=== PATIENT | male | born 1945 ===

== ENCOUNTER 2016-11-13 13:31 | Emergency (ER) | payer MEDICARE ==
[2016-11-13 14:08] VITALS: BP 136/78; PULSE 89; RESP 16; TEMP 98.2; O2SAT 96
[2016-11-13] MEDS ORDERED: Albuterol-Ipratrop 3 mg / 0.5 (3 ml) UD INH STA (14:11)
[2016-11-13] MEDS ORDERED: Albuterol-Ipratrop 3 mg / 0.5 (3 ml) UD ONE (14:27)
--- NOTE | 2016-11-13 14:49 | ED PDOC ---
HPI: SOB/CHF/COPD Time Seen by Provider: 11/13/16 14:02 Chief Complaint (Nursing): Cough, Cold, Congestion Chief Complaint (Provider): shortness of breath History Per: Patient History/Exam Limitations: no limitations Onset/Duration Of Symptoms: Days (2x) Current Symptoms Are (Timing): Still Present Quality: Tightness (chest) Current Respiratory Medications: See Home Med List, Albuterol Severity: Moderate Associated Symptoms: Productive Cough (productive with minimal clear sputum). denies: Fever, Chills, Bloody Cough, Ankle/Leg Swelling, Other (sore throat) Additional Complaint(s): 71 year old male patient with a pertinent medical history of asthma, HTN, COPD, CHF, NIDDM, and anemia presents to the ED right after he came back from [place] with complaints of shortness of breath (ongoing for the past 2x days). He reports that he took his home medication for the 2 weeks that he was in [place] and didn't have any symptoms then, but he has been taking albuterol with no relief for the past 2x days that he has had the symptoms at home. He also reports having associated symptoms of chest tightness and a productive cough with minimal clear sputum. He denies having a fever, hemoptysis, chills, sore throat, and leg swelling. Of note: patient is an ex-smoker. PMD: Shorty Snider MD Past Medical History Reviewed: Historical Data, Nursing Documentation, Vital Signs Vital Signs: Last Vital Signs Temp 98.2 F 11/13/16 14:06 Pulse 89 11/13/16 14:06 Resp 16 11/13/16 14:06 BP 136/78 11/13/16 14:06 Pulse Ox 96 11/13/16 15:11 - Medical History PMH: Asthma, COPD, Diabetes, HTN, Hypercholesterolemia Denies: HIV, Chronic Kidney Disease - Surgical History Surgical History: Hernia Repair - Family History Family History: States: Diabetes, Hypertension - Social History Ex-Smoker (has not smoked in the last 12 months): Yes Alcohol: Occasional Drugs: Denies - Home Medications Home Medications: Ambulatory Orders Medication Instructions Recorded Albuterol HFA [Ventolin HFA 90 2 puff IH Q4H PRN 06/03/16 mcg/actuation (8 g)] Albuterol/Ipratropium [Duoneb 3 3 ml IH QID PRN 06/03/16 mg/0.5 mg (3 ml) UD] Aspirin [Ecotrin] 81 mg PO DAILY 06/03/16 Atorvastatin [Lipitor] 20 mg PO DAILY 06/03/16 Budesonide/Formoterol Fumarate 1 puff IH Q12 06/03/16 [Symbicort 160-4.5 Mcg Inhaler] Levocetirizine Dihydrochloride 5 mg PO DAILY 06/03/16 [Xyzal] Losartan/Hydrochlorothiazide 1 tab PO DAILY 06/03/16 [Hyzaar 100-12.5 Tablet] Montelukast [Singulair] 10 mg PO HS 06/03/16 Pantoprazole Sodium [Protonix] 40 mg PO DAILY 06/03/16 metFORMIN [glucOPHAGE] 500 mg PO BID 06/03/16 predniSONE [predniSONE Tab] 3 tab PO DAILY #12 tab 06/03/16 Albuterol HFA [Ventolin HFA 90 2 puff IH Q4H #1 puff 07/27/16 mcg/actuation (8 g)] Azithromycin [Zithromax] 250 mg PO DAILY #6 tab 07/27/16 predniSONE [predniSONE Tab] 10 mg PO TID #15 tab 07/27/16 Prednisone 50 mg PO DAILY #4 tablet 11/13/16 - Allergies Allergies/Adverse Reactions: Allergies Allergy/AdvReac Type Severity Reaction Status Date / Time Penicillins Allergy RASH Verified 11/13/16 14:06 Review of Systems ROS Statement: Except As Marked, All Systems Reviewed And Found Negative Constitutional: Negative for: Fever, Chills ENT: Negative for: Throat Pain Cardiovascular: Positive for: Other (chest tightness) Respiratory: Positive for: Cough, Shortness of Breath, Sputum (minimal productive with clear sputum) Gastrointestinal: Negative for: Hematemesis Musculoskeletal: Negative for: Other (leg swelling) Physical Exam - Reviewed Nursing Documentation Reviewed: Yes Vital Signs Reviewed: Yes - Physical Exam Appears: Positive for: Well, Non-toxic, In Acute Distress (mild respiratory distress) Head Exam: Positive for: ATRAUMATIC, NORMOCEPHALIC Skin: Positive for: Normal Color, Warm, Dry Eye Exam: Positive for: Normal appearance, EOMI, PERRL ENT: Positive for: Normal ENT Inspection (throat is clear), Other (moist mucous membranes) Neck: Positive for: Normal, Painless ROM, Supple Cardiovascular/Chest: Positive for: Regular Rate, Rhythm, Chest Non Tender. Negative for: Murmur Respiratory: Positive for: Wheezing (scattered expiratory wheeze), Respiratory Distress (mild). Negative for: Normal Breath Sounds, Rales Gastrointestinal/Abdominal: Positive for: Normal Exam, Other (protuberant). Negative for: Mass, Distended, Guarding Extremity: Negative for: Pedal Edema, Calf Tenderness, Deformity Lymphatic: Negative for: Adenopathy (no cervical lymphadenopathy) Neurologic/Psych: Positive for: Alert, Oriented (3x). Negative for: Motor/ Sensory Deficits - Laboratory Results Result Diagrams: 11/13/16 14:30 11/13/16 14:30 - ECG ECG: Positive for: Interpreted By Me ECG Rhythm: Positive for: Normal QRS, Normal ST Segment, Sinus Rhythm O2 Sat by Pulse Oximetry: 96 (RA) Pulse Ox Interpretation: Normal - Radiology X-Ray: Interpreted by De X-Ray Interpretation: No Acute Disease - Progress Re-evaluation Time: 15:00 Condition: Improved (PF improved 350 to 450. Reports feeling better.) Nebulizer Treatments/Peak Flow - Duonebs Number of Bronchodilator Doses given?: 3 - Pre/Post Peak Flow Pre Treatment Peak Flow: 1 Post treatment Peak Flow: 1 Medical Decision Making Medical Decision Makin:02 Initial impression: 71 year old male with shortness of breath. Differential diagnoses include but are not limited to pneumonia, asthma exacerbation, CHF, and viral syndrome. Initial plan: * XRay chest 2 views * EKG * b-type natriuretic peptide * cmp * magnesium * phosphorus * troponin I * CBC with differential * PTT coag * prothrombin time * duoneb (3mlx3)= 9ml INH * peak flow pre and post treatment * influenza A B * reevaluation Scribe Attestation: Documented by Janelle Quintero, acting as a scribe for Yaquelin Coleman MD. Provider Scribe Attestation: All medical record entries made by the Scribe were at my direction and personally dictated by me. I have reviewed the chart and agree that the record accurately reflects my personal performance of the history, physical exam, medical decision making, and the department course for this patient. I have also personally directed, reviewed, and agree with the discharge instructions and disposition. Disposition - Clinical Impression Clinical Impression: Asthma exacerbation Counseled Patient/Family Regarding: Studies Performed, Diagnosis, Need For Followup, Rx Given - Disposition Referrals: [facility] [Outside] Disposition: Routine/Home Disposition Time: 15:30 Condition: IMPROVED Additional Instructions: CALL CLINIC TOMORROW TO SETUP APPOINTMENT FRIDAY Prescriptions: Prednisone 50 mg PO DAILY #4 tablet Instructions: Asthma (ED)
[2016-11-13 14:59] LABS: BASO % 0.5 % (0.0-2.0); EOS # 0.2 K/uL (0.0-0.7); EOS % 2.1 % (0.0-4.0); HEMATOCRIT 38.3 % (35.0-51.0); LYMPH # 1.2 K/uL (1.0-4.3); LYMPH % 14.3 % (20.0-40.0); MEAN CELL VOLUME 77.8 fl (80.0-94.0); MEAN CORPUSCULAR HEMOGLOBIN 24.8 pg (27.0-31.0); MEAN CORPUSCULAR HGB CONC 31.9 g/dL (33.0-37.0); MEAN PLATELET VOLUME 7.6 fl (7.2-11.7); MONO # 0.4 K/uL (0.0-0.8); MONO % 4.4 % (0.0-10.0); NEUT # 6.7 K/uL (1.8-7.0); NEUT % 78.7 % (50.0-75.0); RED CELL DISTRIBUTION WIDTH 16.3 % (11.5-14.5); WHITE BLOOD COUNT 8.5 K/uL (4.8-10.8)
[2016-11-13 15:11] LABS: ALB/GLOB RATIO 1.4 (1.0-2.1); ALKALINE PHOSPHATASE 74 U/L (38-126); ALT/SGPT 53 U/L (21-72); AST/SGOT 32 U/L (17-59); BILIRUBIN,TOTAL 0.8 mg/dl (0.2-1.3); BLOOD UREA NITROGEN 22 mg/dl (9-20); CALCIUM 9.2 mg/dL (8.4-10.2); CARBON DIOXIDE 24 mmol/L (22-30); CHLORIDE 105 mmol/L (98-107); GFR AFRICAN-AMERICAN > 60; GLUCOSE,RANDOM 110 mg/dL (75-110); MAGNESIUM 1.6 MG/DL (1.6-2.3); PHOSPHOROUS 3.4 mg/dl (2.5-4.5); POTASSIUM 3.9 MMOL/L (3.6-5.0); SODIUM 139 mmol/l (132-148)
[2016-11-13 15:48] LABS: PARTIAL THROMBOPLASTIN TIME 23.5 SECONDS (23.3-32.5)
--- NOTE | 2016-11-13 16:22 | RAD ---
HISTORY: Shortness of breath. COMPARISON: 07/27/2016. TECHNIQUE: Chest PA and lateral FINDINGS: LUNGS: Stable apical pleural thickening, scarring PLEURA: No significant pleural effusion identified. No pneumothorax apparent. CARDIOVASCULAR: No radiographic findings to suggest acute or significant cardiovascular disease. OSSEOUS STRUCTURES: No significant abnormalities. VISUALIZED UPPER ABDOMEN: Normal. OTHER FINDINGS: None. IMPRESSION: No active disease. No significant interval change compared to the prior examination(s).
--- NOTE | 2016-11-15 08:12 | CARD ---
APPROVED REPORT EKG Measurement Heart [id number] TN [id number] [id number] <Conclusion> Normal sinus rhythm Normal ECG
== END 2016-11-13 16:04 | disposition home or self-care (01) ==
LOC: H.ER 13:31
DX: J45.901 Unspecified asthma with (acute) exacerbation (principal); R06.02 Shortness of breath; E11.9 Type 2 diabetes mellitus without complications; E78.00 Pure hypercholesterolemia, unspecified; I10 Essential (primary) hypertension; Z79.82 Long term (current) use of aspirin; Z79.84 Long term (current) use of oral hypoglycemic drugs
CPT/HCPCS: 71020; 80053; 82948; 83735; 83880; 84100; 84484; 85025; 85610; 85730; 87040; 87804; 93005; 94640; 96374; 99282; J2930

== ENCOUNTER 2017-04-18 12:02 | Emergency (ER) | payer MEDICARE ==
[2017-04-18 12:11] VITALS: BMI 32.6
[2017-04-18] MEDS ORDERED: Sodium Chloride 0.9% 1,000 ML IV STA (12:34)
--- NOTE | 2017-04-18 12:48 | ED PDOC ---
HPI: Abdomen Time Seen by Provider: 04/18/17 12:33 Chief Complaint (Nursing): GI Problem Chief Complaint (Provider): diarrhea History Per: Patient (71 y/o male h/o IDDM/HTN/HLD here with diarrhea watery frequent x 2 days. Notes abdominal bloating/denies any vomiting/fevers/chills. No h/o abdominal surgeries. ) Past Medical History Reviewed: Historical Data, Nursing Documentation, Vital Signs Vital Signs: Last Vital Signs Temp 98 F 04/18/17 12:11 Pulse 96 H 04/18/17 12:11 Resp 21 04/18/17 12:11 BP 130/63 04/18/17 12:11 Pulse Ox 97 04/18/17 12:48 - Medical History PMH: Asthma, COPD, Diabetes, HTN, Hypercholesterolemia Denies: HIV, Chronic Kidney Disease - Surgical History Surgical History: Hernia Repair - Family History Family History: States: Unknown Family Hx, Diabetes, Hypertension - Home Medications Home Medications: Ambulatory Orders Medication Instructions Recorded Albuterol HFA [Ventolin HFA 90 2 puff IH Q4H PRN 06/03/16 mcg/actuation (8 g)] Albuterol/Ipratropium [Duoneb 3 3 ml IH QID PRN 06/03/16 mg/0.5 mg (3 ml) UD] Aspirin [Ecotrin] 81 mg PO DAILY 06/03/16 Atorvastatin [Lipitor] 20 mg PO DAILY 06/03/16 Budesonide/Formoterol Fumarate 1 puff IH Q12 06/03/16 [Symbicort 160-4.5 Mcg Inhaler] Levocetirizine Dihydrochloride 5 mg PO DAILY 06/03/16 [Xyzal] Losartan/Hydrochlorothiazide 1 tab PO DAILY 06/03/16 [Hyzaar 100-12.5 Tablet] Montelukast [Singulair] 10 mg PO HS 06/03/16 Pantoprazole Sodium [Protonix] 40 mg PO DAILY 06/03/16 metFORMIN [glucOPHAGE] 500 mg PO BID 06/03/16 Famotidine [Pepcid] 20 mg PO BID #10 tab 04/18/17 - Allergies Allergies/Adverse Reactions: Allergies Allergy/AdvReac Type Severity Reaction Status Date / Time Penicillins Allergy RASH Verified 11/13/16 14:06 Review of Systems ROS Statement: Except As Marked, All Systems Reviewed And Found Negative Physical Exam - Reviewed Nursing Documentation Reviewed: Yes Vital Signs Reviewed: Yes - Physical Exam Appears: Positive for: Well, Non-toxic, No Acute Distress Head Exam: Positive for: ATRAUMATIC, NORMAL INSPECTION, NORMOCEPHALIC Skin: Positive for: Normal Color, Warm, DRY Eye Exam: Positive for: EOMI, Normal appearance, PERRL ENT: Positive for: Normal ENT Inspection Neck: Positive for: Normal, Painless ROM Cardiovascular/Chest: Positive for: Regular Rate, Rhythm Respiratory: Positive for: CNT, Normal Breath Sounds Gastrointestinal/Abdominal: Positive for: Normal Exam, Bowel Sounds (decreased bowel sounds), Soft, Other. Negative for: Tenderness (epigastric tenderness minimal) Back: Positive for: Normal Inspection Extremity: Positive for: Normal ROM Neurologic/Psych: Positive for: Alert, Oriented - Laboratory Results Result Diagrams: 04/18/17 12:44 04/18/17 12:44 - ECG O2 Sat by Pulse Oximetry: 97 - Progress ED Course And Treament: EKG: Sinus tachycardia 104 bpm no ectopy no acute change pepcid 20 mg iv x 1 dose ns 1 liter 500 ml per hour Re-evaluated 14:30pm. Nontender abdomen noted. Patient feels improved. Disposition - Clinical Impression Clinical Impression: Gastroenteritis - Patient ED Disposition Is Patient to be Admitted: No - Disposition Referrals: Shorty Snider MD [Staff Provider] - Disposition: Routine/Home Disposition Time: 14:59 Condition: FAIR Prescriptions: Famotidine [Pepcid] 20 mg PO BID #10 tab Instructions: Acute Diarrhea (ED) Forms: [employer] (Honduran) Print Language: LIBYAN
[2017-04-18 13:29] LABS: BASO # 0.1 K/uL (0.0-0.2); BASO % 0.5 % (0.0-2.0); EOS % 0.1 % (0.0-4.0); HEMATOCRIT 38.9 % (35.0-51.0); LYMPH # 1.7 K/uL (1.0-4.3); LYMPH % 13.4 % (20.0-40.0); MEAN CELL VOLUME 77.7 fl (80.0-94.0); MEAN CORPUSCULAR HEMOGLOBIN 24.5 pg (27.0-31.0); MEAN CORPUSCULAR HGB CONC 31.6 g/dL (33.0-37.0); MEAN PLATELET VOLUME 7.8 fl (7.2-11.7); MONO % 7.7 % (0.0-10.0); NEUT % 78.3 % (50.0-75.0); WHITE BLOOD COUNT 12.8 K/uL (4.8-10.8)
[2017-04-18 14:14] LABS: ALB/GLOB RATIO 1.3 (1.0-2.1); ALKALINE PHOSPHATASE 90 U/L (38-126); ALT/SGPT 60 U/L (21-72); AST/SGOT 47 U/L (17-59); BILIRUBIN,TOTAL 0.8 mg/dl (0.2-1.3); BLOOD UREA NITROGEN 18 mg/dl (9-20); CALCIUM 8.8 mg/dL (8.4-10.2); CARBON DIOXIDE 20 mmol/L (22-30); CHLORIDE 103 mmol/L (98-107); GFR AFRICAN-AMERICAN > 60; GLUCOSE,RANDOM 126 mg/dL (75-110); LIPASE 42 U/L (23-300); MAGNESIUM 1.8 MG/DL (1.6-2.3); POTASSIUM 3.7 MMOL/L (3.6-5.0); SODIUM 137 mmol/l (132-148); TOTAL PROTEIN 6.8 G/DL (6.3-8.2)
[2017-04-18 15:05] VITALS: BP 148/89; PULSE 86; RESP 14; TEMP 97.9; O2SAT 100
== END 2017-04-18 15:25 | disposition home or self-care (01) ==
LOC: H.ER 12:02
DX: K52.9 Noninfective gastroenteritis and colitis, unspecified (principal); E11.9 Type 2 diabetes mellitus without complications
CPT/HCPCS: 80053; 82948; 83690; 83735; 85025; 96374; 99285; J7040

== ENCOUNTER 2018-01-23 07:15 | Day surgery (SDC) | payer MEDICARE ==
[2018-01-23 07:31] VITALS: BMI 32.2
[2018-01-23] MEDS ORDERED: Lactated Ringer's 500 ML IV ONE (07:43)
[2018-01-23] MEDS ORDERED: Propofol 10 mg/ml Inj (20 ML) ONE (09:06)
[2018-01-23 09:31] VITALS: BP 104/58; PULSE 91; RESP 18; TEMP 96.8; O2SAT 99
== END 2018-01-23 10:31 | disposition home or self-care (01) ==
LOC: H.ENDO 07:15
PROVIDERS: ATTEND Internal Medicine Gastroenterology
DX: Z12.11 Encounter for screening for malignant neoplasm of colon (principal); J45.909 Unspecified asthma, uncomplicated; E78.5 Hyperlipidemia, unspecified; E11.9 Type 2 diabetes mellitus without complications; I10 Essential (primary) hypertension; K64.8 Other hemorrhoids; D12.2 Benign neoplasm of ascending colon; K57.30 Diverticulosis of large intestine without perforation or abscess without bleeding
CPT/HCPCS: 45385; 88305; J2001; J2704; J7120

== ENCOUNTER 2018-11-14 12:20 | Emergency (ER) | payer MEDICARE ==
[2018-11-14 12:20] VITALS: BMI 32.2
[2018-11-14 12:29] VITALS: BP 145/85; PULSE 109; RESP 16; TEMP 97.3; O2SAT 98
[2018-11-14] MEDS ORDERED: Albuterol-Ipratrop 3 mg / 0.5 (3 ml) UD IH STA ×2 (12:47→12:48)
[2018-11-14] MEDS ORDERED: Albuterol-Ipratrop 3 mg / 0.5 (3 ml) UD INH STA (12:47)
--- NOTE | 2018-11-14 12:55 | ED PDOC ---
HPI: Asthma Time Seen by Provider: 11/14/18 12:35 Chief Complaint (Nursing): Shortness Of Breath Chief Complaint (Provider): Shortness of Breath, Coughing History Per: Patient History/Exam Limitations: no limitations Onset/Duration Of Symptoms: Days (x5) Current Symptoms Are (Timing): Still Present Additional Complaint(s): 73 year old male presents to the ED for evaluation of shortness of breath, coughing, and chest tightness for the past five days, similar to previous asthmatic episodes. Reports using his inhaler at home with minimal relief. Patient also notes having some nasal congestion, but otherwise denies nausea, vomiting, diarrhea, leg pain, dizziness, and headache. PMD: Shorty Snider Past Medical History Reviewed: Historical Data, Nursing Documentation, Vital Signs Vital Signs: Last Vital Signs Temp 97.3 F L 11/14/18 12:23 Pulse 109 H 11/14/18 12:23 Resp 16 11/14/18 12:23 BP 145/85 11/14/18 12:23 Pulse Ox 98 11/14/18 12:23 - Medical History PMH: Asthma (LAST ATTACK 1 YEAR AGO), COPD, Diabetes, HTN, Hypercholesterolemia Denies: HIV, Chronic Kidney Disease - Surgical History Surgical History: Hernia Repair - Family History Family History: States: Diabetes, Hypertension - Home Medications Home Medications: Ambulatory Orders Medication Instructions Recorded Albuterol HFA [Ventolin HFA 90 2 puff IH Q4H PRN 06/03/16 mcg/actuation (8 g)] Albuterol/Ipratropium [Duoneb 3 3 ml IH QID PRN 06/03/16 mg/0.5 mg (3 ml) UD] Aspirin [Ecotrin] 81 mg PO DAILY 06/03/16 Atorvastatin [Lipitor] 20 mg PO DAILY 06/03/16 Budesonide/Formoterol Fumarate 1 puff IH Q12 06/03/16 [Symbicort 160-4.5 Mcg Inhaler] Levocetirizine Dihydrochloride 5 mg PO DAILY 06/03/16 [Xyzal] Losartan/Hydrochlorothiazide 1 tab PO DAILY 06/03/16 [Hyzaar 100-12.5 Tablet] Montelukast [Singulair] 10 mg PO HS 06/03/16 Pantoprazole Sodium [Protonix] 40 mg PO DAILY 06/03/16 metFORMIN [glucOPHAGE] 500 mg PO BID 06/03/16 Albuterol Sulfate [Proair Hfa] 0.09 mg IH Q6H PRN #2 inh 11/14/18 Benzonatate [Tessalon Perles] 100 mg PO BID PRN 5 Days sgl 11/14/18 predniSONE [predniSONE Tab] 20 mg PO BID 5 Days tab 11/14/18 - Allergies Allergies/Adverse Reactions: Allergies Allergy/AdvReac Type Severity Reaction Status Date / Time Penicillins Allergy RASH Verified 11/14/18 12:25 Review of Systems ROS Statement: Except As Marked, All Systems Reviewed And Found Negative ENT: Positive for: Nose Congestion Cardiovascular: Positive for: Other (chest tightness) Respiratory: Positive for: Cough, Shortness of Breath Gastrointestinal: Negative for: Nausea, Vomiting, Diarrhea Musculoskeletal: Negative for: Leg Pain Neurological: Negative for: Headache, Dizziness Physical Exam - Reviewed Nursing Documentation Reviewed: Yes Vital Signs Reviewed: Yes - Physical Exam Appears: Positive for: No Acute Distress Head Exam: Positive for: ATRAUMATIC, NORMOCEPHALIC Skin: Positive for: Normal Color, Warm, Dry. Negative for: Rash Eye Exam: Positive for: Normal appearance ENT: Positive for: Nasal Congestion Neck: Positive for: Normal, Painless ROM, Supple Cardiovascular/Chest: Positive for: Regular Rate, Rhythm, Chest Non Tender Respiratory: Positive for: Wheezing (diffuse). Negative for: Accessory Muscle Use, Respiratory Distress Gastrointestinal/Abdominal: Positive for: Normal Exam, Soft. Negative for: Tenderness Back: Positive for: Normal Inspection Extremity: Positive for: Normal ROM (all extremities) Neurological/Psych: Positive for: Awake, Alert, Oriented (x3) - ECG ECG: Positive for: Interpreted By Me ECG Rhythm: Positive for: Sinus Tachycardia (mild) O2 Sat by Pulse Oximetry: 98 (RA) Pulse Ox Interpretation: Normal - Progress ED Course And Treament: 1505: Feels much better. AAOx3. Pain free. Tolerated po. No dyspnea. Medical Decision Making Medical Decision Making: Time: 1229 Impression: shortness of breath and coughing in setting of known asthma Initial Plan: --EKG --Duoneb 3ml INH x3 --Prednisone 60mg PO --Peak flow pre/post --Reevaluation Scribe Attestation: Documented by Yana Quinones, acting as a scribe for Elvis Quinones MD. Provider Scribe Attestation: All medical record entries made by the Scribe were at my direction and personally dictated by me. I have reviewed the chart and agree that the record accurately reflects my personal performance of the history, physical exam, medical decision making, and the department course for this patient. I have also personally directed, reviewed, and agree with the discharge instructions and disposition. Disposition - Clinical Impression Clinical Impression: Asthma exacerbation - Patient ED Disposition Is Patient to be Admitted: No Counseled Patient/Family Regarding: Studies Performed, Diagnosis, Need For Followup, Rx Given - Disposition Referrals: [facility] [Outside] - 11/16/18 Disposition: Routine/Home Disposition Time: 15:06 Condition: STABLE Additional Instructions: Return if not better in 3 days. Prescriptions: Albuterol Sulfate [Proair Hfa] 0.09 mg IH Q6H PRN #2 inh PRN Reason: Wheezing Benzonatate [Tessalon Perles] 100 mg PO BID PRN 5 Days sgl PRN Reason: Cough predniSONE [predniSONE Tab] 20 mg PO BID 5 Days tab Instructions: Asthma in Adults
--- NOTE | 2018-11-15 16:46 | CARD ---
APPROVED REPORT Date of service: 11/14/2018 EKG Measurement Heart [id number] CT [id number] <Conclusion> Sinus tachycardia Otherwise normal ECG
== END 2018-11-14 15:20 | disposition home or self-care (01) ==
LOC: H.ER 12:20
DX: J45.901 Unspecified asthma with (acute) exacerbation (principal); J44.9 Chronic obstructive pulmonary disease, unspecified; I10 Essential (primary) hypertension; E11.9 Type 2 diabetes mellitus without complications; Z79.82 Long term (current) use of aspirin; Z79.84 Long term (current) use of oral hypoglycemic drugs; Z79.899 Other long term (current) drug therapy; Z88.0 Allergy status to penicillin

== ENCOUNTER 2018-12-11 07:14 | Day surgery (SDC) | payer MEDICARE ==
[2018-12-11] MEDS ORDERED: Lactated Ringer's 500 ML IV ONE ×2 (07:25)
[2018-12-11 07:40] VITALS: BMI 32.4
[2018-12-11] MEDS ORDERED: Propofol 10 mg/ml Inj (20 ML) ONE (08:29)
[2018-12-11 08:55] VITALS: PULSE 100; RESP 20; TEMP 98.3; O2SAT 96
[2018-12-11 09:05] VITALS: BP 137/78
== END 2018-12-11 13:51 | disposition home or self-care (01) ==
LOC: H.ENDO 07:14
PROVIDERS: ATTEND Internal Medicine Gastroenterology
DX: Z12.11 Encounter for screening for malignant neoplasm of colon (principal); K64.1 Second degree hemorrhoids; D12.5 Benign neoplasm of sigmoid colon; K57.30 Diverticulosis of large intestine without perforation or abscess without bleeding; J45.909 Unspecified asthma, uncomplicated; E11.9 Type 2 diabetes mellitus without complications; E78.5 Hyperlipidemia, unspecified; I10 Essential (primary) hypertension
CPT/HCPCS: 45380; 82948; 88305; J2001; J2704; J7120

== ENCOUNTER 2018-12-25 07:12 | Day surgery (SDC) | payer MEDICARE ==
[2018-12-25] MEDS ORDERED: Lactated Ringer's 500 ML IV ONE (07:49)
[2018-12-25 07:57] VITALS: BMI 32.7
[2018-12-25] MEDS ORDERED: Propofol 10 mg/ml Inj (20 ML) ONE (08:49)
[2018-12-25 10:09] VITALS: BP 113/74; PULSE 94; RESP 17; TEMP 97; O2SAT 99
== END 2018-12-25 10:30 | disposition home or self-care (01) ==
LOC: H.ENDO 07:12
PROVIDERS: ATTEND Internal Medicine Gastroenterology
DX: K27.9 Peptic ulcer, site unspecified, unspecified as acute or chronic, without hemorrhage or perforation (principal); E11.9 Type 2 diabetes mellitus without complications; E78.5 Hyperlipidemia, unspecified; I10 Essential (primary) hypertension; E66.9 Obesity, unspecified; K31.89 Other diseases of stomach and duodenum; K44.9 Diaphragmatic hernia without obstruction or gangrene
CPT/HCPCS: 43239; 82948; 88305; J2001; J2704; J7120

== ENCOUNTER 2019-01-16 09:49 | Emergency (ER) | payer MEDICARE ==
[2019-01-16 09:55] VITALS: BMI 33.7
[2019-01-16 09:56] VITALS: O2SAT 96
[2019-01-16] MEDS ORDERED: Albuterol-Ipratrop 3 mg / 0.5 (3 ml) UD INH STA (11:02)
[2019-01-16] MEDS ORDERED: Albuterol-Ipratrop 3 mg / 0.5 (3 ml) UD ONE ×2 (11:11→12:05)
[2019-01-16 11:42] LABS: BASO # 0.1 K/uL (0.0-0.2); BASO % 1.1 % (0.0-2.0); EOS # 0.3 K/uL (0.0-0.7); HEMOGLOBIN 9.2 g/dL (12.0-18.0); LYMPH # 1.3 K/uL (1.0-4.3); LYMPH % 16.7 % (20.0-40.0); MEAN CELL VOLUME 65.3 fl (80.0-94.0); MEAN CORPUSCULAR HGB CONC 30.6 g/dL (33.0-37.0); MEAN PLATELET VOLUME 7.2 fl (7.2-11.7); MONO # 0.7 K/uL (0.0-0.8); MONO % 8.9 % (0.0-10.0); NEUT # 5.4 K/uL (1.8-7.0); NEUT % 69.3 % (50.0-75.0); NRBC % 0.1 % (0.0-0.0); RBC 4.6 Mil/uL (4.40-5.90); RED CELL DISTRIBUTION WIDTH 18.4 % (11.5-14.5); WHITE BLOOD COUNT 7.8 K/uL (4.8-10.8)
[2019-01-16 12:05] LABS: ALB/GLOB RATIO 1.5 (1.0-2.1); ALBUMIN 4.3 g/dL (3.5-5.0); ALT/SGPT 37 U/L (21-72); AST/SGOT 43 U/L (17-59); BLOOD UREA NITROGEN 20 mg/dl (9-20); CALCIUM 9.1 mg/dL (8.4-10.2); GFR NON-AFRICAN AMERICAN > 60
--- NOTE | 2019-01-16 13:47 | ED PDOC ---
HPI: SOB/CHF/COPD Time Seen by Provider: 01/16/19 10:07 Chief Complaint (Nursing): Shortness Of Breath Chief Complaint (Provider): Cough, wheezing History Per: Patient History/Exam Limitations: no limitations Onset/Duration Of Symptoms: Days Current Symptoms Are (Timing): Still Present Initiating Event: Upper Respiratory Illness Exacerbating Factor(s): Exertion, Coughing Current Respiratory Medications: Albuterol Severity: Moderate Associated Symptoms: Chills, Sweating. denies: Fever, Chest Pain, Bloody Cough, Productive Cough, Ankle/Leg Swelling, Dizziness, Light-headedness Additional History Per: Patient Additional Complaint(s): 73 year old male with history of asthma, diabetes, hypertension, high cholester ol presents to the ED c/o shortness of breath, cough, wheezing for 1 week. Patient states this morning after showering he had sudden on set of chill and cold sweats. Patient denies fever or chest pain. He states cough is dry, he has been using albuterol inhaler and taking symbicort with minimal relief. Denies lower extremity swelling, abdominal pain, dizziness, nausea/vomiting. Past Medical History Reviewed: Historical Data, Nursing Documentation, Vital Signs Vital Signs: Last Vital Signs Temp 98.1 F 01/16/19 09:55 Pulse 100 H 01/16/19 09:55 Resp 17 01/16/19 09:55 BP 153/88 H 01/16/19 09:55 Pulse Ox 96 01/16/19 09:55 Primary Care Provider: Shorty Snider - Medical History PMH: Asthma, COPD, Diabetes, HTN, Hypercholesterolemia Denies: HIV, Chronic Kidney Disease - Surgical History Surgical History: Hernia Repair - Family History Family History: States: Unknown Family Hx, Diabetes, Hypertension - Social History Alcohol: None Drugs: Denies - Home Medications Home Medications: Ambulatory Orders Medication Instructions Recorded Albuterol HFA [Ventolin HFA 90 2 puff IH Q4H PRN 06/03/16 mcg/actuation (8 g)] Atorvastatin [Lipitor] 20 mg PO DAILY 06/03/16 Budesonide/Formoterol Fumarate 1 puff IH Q12 06/03/16 [Symbicort 160-4.5 Mcg Inhaler] Losartan/Hydrochlorothiazide 1 tab PO DAILY 06/03/16 [Hyzaar 100-12.5 Tablet] Montelukast [Singulair] 10 mg PO HS 06/03/16 metFORMIN [glucOPHAGE] 500 mg PO BID 06/03/16 Prednisone 50 mg PO DAILY #4 tablet 01/16/19 - Allergies Allergies/Adverse Reactions: Allergies Allergy/AdvReac Type Severity Reaction Status Date / Time Penicillins Allergy RASH Verified 11/14/18 12:25 Curb-65 Severity Score - CURB-65 Severity Score Confusion: No Bun >19mg/dl (>7mmol/L): No Respiratory Rate greater than/equal to 30: No Systolic BP <90 or Diastolic BP less than/equal 60mmHg: No Age >64: No Curb-65 Score: 0 Percentage 30-day mortality: 0.6% Review of Systems ROS Statement: Except As Marked, All Systems Reviewed And Found Negative Constitutional: Positive for: Chills, Sweats, Weakness, Malaise. Negative for: Fever Eyes: Negative for: Pain, Eyelid Inflammation ENT: Negative for: Ear Pain, Nose Pain, Nose Congestion, Throat Pain Cardiovascular: Negative for: Chest Pain, Palpitations Respiratory: Positive for: Cough, Shortness of Breath, SOB with Exertion, Wheezing. Negative for: Hemoptysis, Sputum Gastrointestinal: Negative for: Nausea, Vomiting, Abdominal Pain Neurological: Negative for: Confusion, Altered Mental Status, Headache, Dizziness Physical Exam - Reviewed Nursing Documentation Reviewed: Yes Vital Signs Reviewed: Yes - Physical Exam Appears: Positive for: Well, Non-toxic, No Acute Distress Head Exam: Positive for: ATRAUMATIC, NORMAL INSPECTION, NORMOCEPHALIC Skin: Positive for: Normal Color, Warm, DRY Eye Exam: Positive for: Normal appearance, PERRL ENT: Positive for: Pharyngeal Erythema. Negative for: Nasal Congestion, Tonsillar Exudate, Tonsillar Swelling Neck: Positive for: Normal, Painless ROM, Supple Cardiovascular/Chest: Positive for: Regular Rate, Rhythm, Chest Non Tender Respiratory: Positive for: Wheezing (expiratory wheeze). Negative for: Respiratory Distress Pulses-Radial (L): 2+ Pulses-Radial (R): 2+ Gastrointestinal/Abdominal: Positive for: Normal Exam, Bowel Sounds (normoactive ), Soft, Distended (soft ). Negative for: Tenderness Back: Positive for: Normal Inspection Extremity: Positive for: Normal ROM Neurological/Psych: Positive for: Awake, Alert, Normal Tone, Oriented - Laboratory Results Result Diagrams: 01/16/19 11:19 01/16/19 11:19 Lab Results: Troponin I < 0.0120 ng/mL (0.00-0.120) 01/16/19 11:19 Total Bilirubin 0.6 mg/dl (0.2-1.3) 01/16/19 11:19 AST 43 U/L (17-59) 01/16/19 11:19 ALT 37 U/L (21-72) 01/16/19 11:19 Alkaline Phosphatase 85 U/L (38-126) 01/16/19 11:19 Total Protein 7.1 G/DL (6.3-8.2) 01/16/19 11:19 Albumin 4.3 g/dL (3.5-5.0) 01/16/19 11:19 Globulin 2.9 gm/dL (2.2-3.9) 01/16/19 11:19 Albumin/Globulin Ratio 1.5 (1.0-2.1) 01/16/19 11:19 - ECG O2 Sat by Pulse Oximetry: 96 Medical Decision Making Medical Decision Making: --cbc --cmp --chest xray --albuterol nebs x3 --re-eval 13:30 Labs reviewed by me unremarkable. Chest xray viewed by me unremarkable. Patient reassessed at this time, scattered expiratory wheezing bilat but marked improvement from initial assessment. Patient states he feel better. Ambulating o2 saturation : 96-98% on room air. Patient denies sob on exertion while ambulating. patient stable for discharge home. patient has albuterol inhaler and albuterol nebs at home. rx given for prednisone. Follow-up with PMD within one week. Patient states understanding and agrees with plan. Disposition - Clinical Impression Clinical Impression: Asthma exacerbation - Patient ED Disposition Is Patient to be Admitted: No Counseled Patient/Family Regarding: Diagnosis, Need For Followup, Rx Given - Disposition Referrals: Shorty Snider MD [Staff Provider] - Disposition: Routine/Home Disposition Time: 13:45 Condition: IMPROVED Prescriptions: Prednisone 50 mg PO DAILY #4 tablet Instructions: Asthma in Adults Forms: [employer] (Lao) Print Language: KOREAN - POA Present On Arrival: None
--- NOTE | 2019-01-16 14:03 | RAD ---
Date of service: 01/16/2019 HISTORY: cough, wheezing COMPARISON: Chest radiographs 11/13/2016. TECHNIQUE: Chest PA and lateral views FINDINGS: LUNGS: Calcified granuloma again seen the mid right lung zone laterally. No acute infiltrate bilaterally. PLEURA: No significant pleural effusion identified. No pneumothorax apparent. CARDIOVASCULAR: No aortic atherosclerotic calcification present. Normal cardiac size. No pulmonary vascular congestion. OSSEOUS STRUCTURES: No significant abnormalities. VISUALIZED UPPER ABDOMEN: Normal. OTHER FINDINGS: None. IMPRESSION: No interval acute cardiopulmonary disease appreciated.
[2019-01-16 15:02] VITALS: BP 142/84; PULSE 95; RESP 18; TEMP 98.4
--- NOTE | 2019-01-17 11:28 | CARD ---
APPROVED REPORT Date of service: 01/16/2019 EKG Measurement Heart [id number] MA [id number] [id number] <Conclusion> Sinus tachycardia Possible Left atrial enlargement Borderline ECG
== END 2019-01-16 14:30 | disposition home or self-care (01) ==
LOC: H.ER 09:49
DX: J45.901 Unspecified asthma with (acute) exacerbation (principal); E11.9 Type 2 diabetes mellitus without complications; E78.00 Pure hypercholesterolemia, unspecified; I10 Essential (primary) hypertension